=== PATIENT | male | born 1970 | race Caucasian/White ===

== ENCOUNTER 2016-08-06 07:01 | Observation (INO) | payer BC, OTHER ==
--- NOTE | 2016-07-24 12:01 | DIAGNOSTIC IMAGING REPORT ---
CHEST 2 VIEWS ROUTINE CLINICAL HISTORY: Preoperative chest COMPARISON STUDY: No previous studies for comparison. FINDINGS: The cardiac and mediastinal contours are normal. There is no focal pulmonary consolidation. There are no pleural effusions. There is no failure.[ IMPRESSION: No active disease in the chest. Electronically signed by: Kenji Chirinos M.D. 07/24/2016 12:00 PM Dictated Date/Time: 07/24/2016 11:59 AM
[2016-07-24 12:11] LABS: BASO % 0.6 %; BASO ABS # 0.04 K/uL (0-0.2); COMPLETE YES; EOS % 5.1 %; HEMATOCRIT 43.2 % (42-52); IG% 0.3 %; LYMPH % 36.2 %; LYMPH ABS # 2.63 K/uL (1.2-3.4); MEAN CELL VOLUME 87.6 fL (80-100); MEAN CORPUSCULAR HEMOGLOBIN 29.6 pg (25-34); MEAN CORPUSCULAR HGB CONC 33.8 g/dl (32-36); MEAN PLATELET VOLUME 10.2 fL (7.4-10.4); MONO % 5.2 %; NEUT % 52.6 %; PLATELET COUNT 260 K/uL (130-400); RED BLOOD COUNT 4.93 M/uL (4.7-6.1); WHITE BLOOD COUNT 7.27 K/uL (4.8-10.8)
[2016-07-24 12:19] LABS: PARTIAL THROMBOPLASTIN RATIO 1.1; PROTHROMBIN TIME (PATIENT) 10.9 SECONDS (9.0-12.0)
[2016-07-24 12:20] LABS: BUN/CREATININE RATIO 15.9 (10-20); CALCIUM 9.3 mg/dl (8.5-10.1); CREATININE 0.97 mg/dl (0.60-1.40); POTASSIUM 4.1 mmol/L (3.5-5.1)
--- NOTE | 2016-08-05 11:38 | HISTORY & PHYSICAL EXAMINATION ---
DATE OF ADMISSION: 08/06/2016 HISTORY OF PRESENT ILLNESS: He has neck pain, arm pain, trapezius pain, weakness long finger and index finger numbness, tingling. He has profound pain as well, cannot get comfortable. He has a workup for cervical disc herniation C6-C7. PAST MEDICAL HISTORY: Negative for kidney, liver disease, no carcinoma, acid reflux, positive, neck problems positive. No hypertension, COPD, diabetes. PAST SURGICAL HISTORY: ACL and meniscectomy of the knee. ALLERGIES: SULFUR. MEDICATIONS: Include Ventolin inhaler. SOCIAL HISTORY: Nonsmoker, non-ETOH user. REVIEW OF SYSTEMS: Denies any blurred vision, double vision, tinnitus. Does have neck pain. Denies chest pain, shortness of breath. Denies nausea, vomiting, urgency, frequency, dysuria. PHYSICAL EXAMINATION: VITAL SIGNS: Blood pressure 140/80, pulse of 80, respiratory rate 16, temperature 97.4. CARDIAC: Normal S1, S2, no S3. LUNGS: Clear to auscultation. No rales, rhonchi, or wheezing. ABDOMEN: Soft, nontender. MUSCULOSKELETAL: He has a positive Spurling maneuver. He has numbness and tingling. He has weakness of triceps, weakness of wrist extensors. No Lhermitte's sign. No upper motor neuron issues. Good vascularity. X-rays demonstrate spondylosis cervical spine, disc herniation cervical spine C6-7. DISPOSITION: Includes an ACDF with iliac crest bone graft at C6-7 cervical spine.
[~2016-08-06] VITALS: Ht 185.4 cm; Wt 104.5 kg
[2016-08-06] VITALS (14 sets, daily range): BP systolic 123–163; BP diastolic 78–102; PULSE 74–114; TEMP 36.5–37; O2SAT 95–98; Ht 185.4 cm; Wt 104.5 kg
[~2016-08-06 07:01] MED LIST: CEFAZOLIN 2000 MG/60 ML D5W 60 ML IV SCH; LACTATED RINGER'S 1000ML 1,000 ML IV SCH; NSS 1000ML IV SCH
[2016-08-06] MEDS ORDERED: MIDAZOLAM HCL 1 MG/ML 2ML VIAL ONE (07:57)
[2016-08-06] MEDS ORDERED: FENTANYL CITRATE INJ 50 MCG/1 ML 2 ML VIAL ONE ×2 (07:57→09:37)
--- NOTE | 2016-08-06 07:58 | History & Physical Bridge Note ---
H&P Re-Evaluation Bridge Note: I have examined the patient, reviewed the History & Physical and in the interval since the performance of the History & Physical I have noted the following changes of clinical significance: No changes noted
[2016-08-06] MEDS ORDERED: BACITRACIN 50000 UNIT VIAL ONE (07:59)
[2016-08-06] MEDS ORDERED: BUPIVACAINE/EPINEPHRINE 0.5% MPF 1:200,000 30 ML VIAL ONE (07:59)
[2016-08-06] MEDS ORDERED: THROMBIN FOR SOLN 20000 UNIT KIT ONE (07:59)
[2016-08-06] MEDS ORDERED: GELATIN SPONGE SZ 100 ONE (07:59)
[2016-08-06] MEDS ORDERED: EpHEDrine SULFATE INJ 50 MG/ML AMP IV PRN (08:00)
[2016-08-06] MEDS ORDERED: ATROPINE SULFATE 0.1 MG/ML 5ML SYR IV PRN (08:00)
[2016-08-06] MEDS ORDERED: ONDANSETRON INJ 2 MG/ML 2 ML VIAL IV PRN ×2 (08:00→10:15)
[2016-08-06] MEDS ORDERED: HYDROmorphone INJ 2 MG/ML SYR/VIAL ONE (08:38)
[2016-08-06] MEDS ORDERED: ROCURONIUM BROMIDE 10 MG/ML 5 ML VIAL ONE (08:48)
[2016-08-06] MEDS ORDERED: PROPOFOL IV EMULSION 10 MG/ML 20 ML VIAL IV ONE (08:48)
[2016-08-06] MEDS ORDERED: NEOSTIGMINE METHYLSULFATE 5 MG/5 ML SYR ONE (08:48)
[2016-08-06] MEDS ORDERED: ONDANSETRON INJ 2 MG/ML 2 ML VIAL ONE (08:48)
[2016-08-06] MEDS ORDERED: GLYCOPYRROLATE INJ 0.2 MG/ML VIAL ONE (08:48)
[2016-08-06] MEDS ORDERED: DEXAMETHASONE SOD INJ 4 MG/ML VIAL ONE (08:48)
[2016-08-06] MEDS ORDERED: ALBUTEROL HFA INHALER 8.5 GM INH ONE (08:48)
[2016-08-06] MEDS ORDERED: LIDOCAINE HCL 2% 2 ML VIAL (20MG/ML) ONE (08:48)
--- NOTE | 2016-08-06 10:03 | DIAGNOSTIC IMAGING REPORT ---
INTRAOPERATIVE FLUOROSCOPIC IMAGES OF THE CERVICAL SPINE CLINICAL HISTORY: ACDF COMPARISON STUDY: Cervical spine radiographs February 24, 2016. Fluoroscopy time: 6 seconds. FINDINGS: 2 fluoroscopic images were obtained. These images demonstrate a C6-C7 anterior discectomy and fusion. The inferior aspect of the fusion is partially obscured by overlying soft tissues. IMPRESSION: Fluoroscopic images demonstrating a C6-C7 anterior discectomy and fusion. Electronically signed by: Neal Palm M.D. 08/06/2016 10:01 AM Dictated Date/Time: 08/06/2016 10:00 AM
--- NOTE | 2016-08-06 10:03 | [facility] Post Operative Brief Note ---
Immediate Operative Summary Operative Date Aug 06, 2016. Pre-Operative Diagnosis Cervical Disc Herniation C6-C7 Post-Operative Diagnosis Cervical Disc Herniation C6-C7 Procedure(s) Performed C6-C7 Anterior Cervical Disectomy and Fusion with Iliac Crest Bone Graft Surgeon Dr. Lieberman Anthropology And Archeology Instructor Surgeon(s) SANDRA Barnes Estimated Blood Loss 20ml Specimens none per surgeon Complication(s) None Disposition Recovery Room / PACU
[2016-08-06] MEDS ORDERED: DEXAMETHASONE INJ 8 MG in SYRINGE 0 ML IV PRN (10:15)
[2016-08-06] MEDS ORDERED: RACEPINEPHRINE 2.25% NEBU SOLN 0.5 ML VIAL INH PRN (10:15)
[2016-08-06] MEDS ORDERED: NALOXONE HCL 0.4 MG/1 ML VIAL/CARP IV PRN (10:15)
[2016-08-06] MEDS ORDERED: MAGNESIUM HYDROXIDE SUSP 30 ML UDC PO PRN (10:15)
[2016-08-06] MEDS: FENTANYL CITRATE INJ 50 MCG/1 ML 2 ML VIAL IV PRN ×5 (10:15→11:35)
[2016-08-06] MEDS ORDERED: LORAZEPAM INJ 0.5 MG in SYRINGE 0.75 ML IV PRN (10:15)
[2016-08-06] MEDS ORDERED: ACETAMINOPHEN IV 100 ML IV PRN (10:15)
[2016-08-06] MEDS ORDERED: RANITIDINE HCL 150 MG TAB PO PRN (10:15)
[2016-08-06] MEDS ORDERED: HYDROmorphone INJ 0.5 MG/0.5 ML SYR IV PRN (10:15)
[2016-08-06] MEDS ORDERED: HYDROmorphone INJ 1 MG/ML SYR IV PRN (10:30)
[2016-08-06] MEDS: MoRPHine SULFATE 10 MG/ML CARP/VIAL IV PRN ×3 (11:25→11:35)
--- NOTE | 2016-08-06 11:27 | OPERATIVE REPORT ---
DATE OF OPERATION: 08/06/2016 PREOPERATIVE DIAGNOSES: Spinal cord compression and large disk herniation C6-C7 cervical spine. POSTOPERATIVE DIAGNOSES: Same. PROCEDURES: 1. Anterior cervical discectomy and arthrodesis, C6-C7. 2. Left iliac crest structural autograft. COMPLICATIONS: Zero. BLOOD LOSS: Less than 20 mL. SURGEON: Mitch Lieberman DO CLIP COATER: Colton Yanes PA-C ANESTHESIA: General. DESCRIPTION OF PROCEDURE: The patient was taken to the operating room, general intubated and anesthetic provided to the patient, kept supine, scrubbed and prepped cervical spine and iliac crest draped sterile. We made a transverse skin incision with classic Aguilar Bolton approach to the cervical spine. We dissected the soft tissue. We came down and marked the C5-C6 interspace. Because of his size, we could not quite see down at C6-C7, but we were happy with the placement. We then used the 15 scalpel blade and did a formal diskectomy with pituitaries. I was back on the spinal cord. It was able to get out the free fragment that I thought was the source of his pain. I was pleased with the decompression and visibility. Then, we made a separate skin incision, fascial incision and obtained a structural autograft. This measured about 17 mm in length, 8-9 mm in height, and approximately 14 mm left to right. This was placed into the diskectomy site at C6-C7. The fit was anatomic. We then irrigated and closed the iliac crest with #1 Vicryl, 2-0 and 3-0 nylon on the skin. The cervical spine was closed with 2-0 Vicryl over a [place] drain, 4-0 Monocryl as well. Sterile dressings applied. Cervical collar applied. The patient extubated safely, returned to PACU safely, no apparent complications. Sponge and needle count correct at the close. I attest to the content of the Intraoperative Record and any orders documented therein. Any exceptio ns are noted below.
--- NOTE | 2016-08-06 11:42 | Anesthesiology Progress Note ---
Anesthesia Post Op Note Date & Time Aug 06, 2016 at 11:41 Vital Signs Pain Intensity: 5 Vital Signs Past 12 Hours Date Time Temp Pulse Resp B/P Pulse Ox O2 Delivery O2 Flow Rate FiO2 08/06/16 11:30 36.5 96 12 140/88 95 Nasal Cannula 3 08/06/16 11:20 36.5 96 12 140/89 96 Nasal Cannula 3 08/06/16 11:11 36.5 89 12 159/89 97 Nasal Cannula 3 08/06/16 11:05 91 12 144/90 97 Nasal Cannula 3 08/06/16 10:55 85 12 135/101 6 Nasal Cannula 3 08/06/16 10:45 80 12 146/89 97 Nasal Cannula 3 08/06/16 10:35 96 12 154/92 100 Nasal Cannula 3 08/06/16 10:25 89 12 154/99 100 Mask 10 08/06/16 10:15 97 12 159/95 100 Mask 10 08/06/16 10:09 36.0 85 12 156/90 100 Mask 10 08/06/16 07:32 36.6 97 22 144/102 96 Room Air Notes Mental Status: alert / awake / arousable, participated in evaluation Pt Amnestic to Procedure: Yes Nausea / Vomiting: adequately controlled Pain: adequately controlled Airway Patency, RR, SpO2: stable & adequate BP & HR: stable & adequate Hydration State: stable & adequate Anesthetic Complications: no major complications apparent
[2016-08-06] MEDS: SODIUM CHLORIDE 0.9% 1000ML 1,000 ML IV SCH ×2 (12:50→22:02)
[2016-08-06] MEDS: OXYCODONE/ACETAMINOPHEN 5-325 TAB PO PRN ×2 (13:25→18:47)
[2016-08-06] MEDS: DEXAMETHASONE INJ 6 MG in SYRINGE 0 ML IV SCH (16:15)
[2016-08-06] MEDS: CEFAZOLIN IV 1,000 MG in DEXTROSE 5% 50ML 50 ML IV SCH (16:15)
[2016-08-06] MEDS: DOCUSATE SODIUM 100 MG CAP PO SCH (20:50)
[2016-08-07] VITALS (16 sets, daily range): BP systolic 112–165; BP diastolic 72–95; PULSE 71–95; TEMP 36.4–36.8; O2SAT 93–98
[2016-08-07] MEDS: CEFAZOLIN IV 1,000 MG in DEXTROSE 5% 50ML 50 ML IV SCH ×2 (00:09→07:47)
[2016-08-07] MEDS: DEXAMETHASONE INJ 6 MG in SYRINGE 0 ML IV SCH ×2 (00:09→07:47)
[2016-08-07] MEDS: HYDROmorphone INJ 1 MG/ML SYR IV PRN ×2 (00:25→04:14)
[2016-08-07] MEDS: OXYCODONE/ACETAMINOPHEN 5-325 TAB PO PRN ×3 (02:16→12:25)
--- NOTE | 2016-08-07 07:39 | Discharge Instructions ---
Discharge Instructions Date of Service Aug 07, 2016. Admission Reason for Admission: Cervical Disc Herniation C6-C7 Discharge Discharge Diagnosis / Problem: cord compression Discharge Goals Goal(s): Improve function Activity Recommendations Activity Limitations: as noted below Lifting Limitations: gradually increase as tolerated Exercise/Sports Limitations: until after follow-up appointment May Resume Sexual Activity: after follow-up appointment Shower/Bathe: keep incision dry . Current Hospital Diet Patient's current hospital diet: Full Liquid Diet Discharge Diet Recommended Diet: Regular Diet Procedures Procedures Performed: C6-C7 Anterior Cervical Disectomy and Fusion with Iliac Crest Bone Graft Pending Studies Studies pending at discharge: no Medical Emergencies . Who to Call and When: Medical Emergencies: If at any time you feel your situation is an emergency, please call 911 immediately. . Non-Emergent Contact Non-Emergency issues call your: Surgeon Call Non-Emergent contact if: you have any medication questions . "Provider Documentation" section prepared by Mitch Lieberman. VTE Core Measure Inpt VTE Proph given/why not?: Treatment not indicated
--- NOTE | 2016-08-07 08:21 | Anesthesiology Progress Note ---
Anesthesia Post Op Note Date & Time Aug 07, 2016 at 08:20 Vital Signs Pain Intensity: 5.0 Vital Signs Past 12 Hours Date Time Temp Pulse Resp B/P Pulse Ox O2 Delivery O2 Flow Rate FiO2 08/07/16 08:10 Room Air 08/07/16 08:01 79 16 96 Room Air 08/07/16 07:42 36.5 87 16 117/75 94 Room Air 08/07/16 07:05 16 Room Air 08/07/16 06:00 36.4 71 14 112/72 97 Room Air 08/07/16 04:00 36.5 73 122/75 97 Nasal Cannula 2.0 Humidified Oxygen 08/07/16 03:22 88 14 98 Nasal Cannula 2.0 08/07/16 02:00 36.8 75 16 128/74 96 Nasal Cannula 2.0 Humidified Oxygen 08/07/16 00:00 Nasal Cannula 2.0 Humidified Oxygen 08/07/16 00:00 36.8 93 18 113/72 97 Nasal Cannula 2.0 Humidified Oxygen 08/06/16 23:28 96 14 96 Nasal Cannula 3.0 08/06/16 22:00 37.0 95 18 123/78 97 Nasal Cannula 3.0 Humidified Oxygen 08/06/16 21:00 36.8 104 18 135/84 95 Nasal Cannula 3.0 Humidified Oxygen Notes Mental Status: alert / awake / arousable, participated in evaluation Pt Amnestic to Procedure: Yes Nausea / Vomiting: adequately controlled Pain: adequately controlled Airway Patency, RR, SpO2: stable & adequate BP & HR: stable & adequate Hydration State: stable & adequate Anesthetic Complications: no major complications apparent
--- NOTE | 2016-08-07 08:41 | DISCHARGE SUMMARY ---
DATE OF DISCHARGE: 08/07/16 SUBJECTIVE: Minimal complaints of pain. Alert, oriented, improved. OBJECTIVE: Vital signs stable, wound is clean, dry. No neurological deficits. ASSESSMENT: Status post anterior cervical discectomy and fusion cervical spine. DISPOSITION: Will discharge him home today in improved stable condition. Instructions, precautions, education. He has prescriptions at home. He has a cervical collar for support. He was given instructions in the office and in the hospital. Followup examination in 10 days.
[2016-08-07] MEDS: DOCUSATE SODIUM 100 MG CAP PO SCH (08:47)
[2016-08-07] MEDS ORDERED: MULTIVITAMIN TAB PO SCH (09:00)
[2016-08-07] MEDS: SODIUM CHLORIDE 0.9% 1000ML 1,000 ML IV SCH (09:24)
[2016-08-08] MEDS ORDERED: BISACODYL 10 MG SUPP PR PRN (06:00)
[2016-08-08] MEDS ORDERED: POLYETHYLENE (MIRALAX) 17 GM PACK PO SCH (09:00)
== END 2016-08-07 16:45 | disposition home or self-care (01) ==
LOC: ENRESERVDT → ENRESERVTM → C.ACU 07:01 → C.3E 07:18
PROVIDERS: ADMIT Orthopaedic Surgery Orthopaedic Surgery of the Spine; ATTEND Orthopaedic Surgery Orthopaedic Surgery of the Spine
DX: M50.20 Other cervical disc displacement, unspecified cervical region (principal); G95.20 Unspecified cord compression

== ENCOUNTER 2017-04-06 14:38 | Emergency (ER) | payer OTHER ==
[2017-04-06] MEDS ORDERED: SODIUM CHLORIDE 0.9% 1000ML 1,000 ML IV STA ×2 (14:51→15:47)
[2017-04-06 15:03] VITALS: O2SAT 94
--- NOTE | 2017-04-06 15:03 | EMERGENCY ROOM VISIT NOTE ---
History Report prepared by Natalia: Sydnie Fernandez Under the Supervision of: Dr. Moreno Head M.D. First contact with patient: 14:42 Chief Complaint: TACHYCARDIA Stated Complaint: TACHYCARDIA Nursing Triage Summary: Pt was at work, sitting, and had a sudden onset of tachycardia, diaphoresis, lightheaded, achy. Had a similar episode 2 weeks ago. Pt had SOB today with this episode. History of Present Illness The patient is a 47 year old male who presents to the Emergency Room with complaints of intermittent palpitations since 4.5 hours PULLER THROUGH. He notes beginning to sweat earlier this morning and his heart suddenly began to race and he became short of breath and could not walk upstairs. He went to [facility] and notes his HR was 160. He was given Ativan IV. He currently does not have any palpitations. He has had a similar episode two weeks ago for which he has not yet seen his PCP. He reports having headaches in general, though not attributed to his palpitations. He has a history of neck surgery for a cervical spinal fusion in August 2016. He notes regularly exercise and denies taking any supplements besides a multivitamin. He notes recently cutting back on soda and has increased his water intake over the last two weeks. He denies any fevers, chills, coughs, congestion, abdominal pain, or dizziness. Source of History: patient Onset: 4.5 hours PULLER THROUGH Quality: other (palpitations) Timing: intermittent Associated Symptoms: + headache, + diaphoresis, + SOB, No fevers, No chills , No cough, No abdominal pain Note: He denies congestion and dizziness. He currently does not have palpitations. Review of Systems See HPI for pertinent positives and negatives. A total of ten systems were reviewed and were otherwise negative. Past Medical & Surgical Medical Problems: (1) Cervical disc disease Surgical Problems: (1) S/P cervical spinal fusion Family History No pertinent family history obtained. Social History Smoking Status: Never Smoker Alcohol Use: occasionally Marital Status: Housing Status: lives with significant other Occupation Status: employed Current/Historical Medications Scheduled Multivitamin (Multivitamin), 1 TAB PO QAM Scheduled PRN Albuterol Hfa (Ventolin Hfa), 2-4 PUFFS INH Q6H PRN for Shortness of Breath Ranitidine HCl (Ranitidine 75), 150 MG PO DAILY PRN for Indigestion Allergies Coded Allergies: Shellfish (Verified Allergy, Intermediate, throat edema, 08/06/16) Sulfa Antibiotics (Verified Allergy, Mild, HIVES, 07/21/16) Uncoded Allergies: DOGS CATS (Allergy, Unknown, 06/15/02) Physical Exam Vital Signs Date Time Temp Pulse Resp B/P (MAP) Pulse Ox O2 Delivery O2 Flow Rate FiO2 04/06/17 18:30 88 16 135/93 94 04/06/17 17:31 87 17 143/98 95 Room Air 04/06/17 17:00 86 13 119/61 94 Room Air 04/06/17 16:30 91 13 116/85 94 04/06/17 16:01 122/94 04/06/17 16:00 101 18 94 04/06/17 15:30 104 13 113/81 96 Room Air 04/06/17 15:15 115 20 124/81 94 Room Air 04/06/17 15:14 111 04/06/17 15:03 94 Room Air 04/06/17 14:41 94 Room Air 04/06/17 14:41 123 25 127/75 94 Room Air Physical Exam GENERAL: Awake, alert, anxious-appearing, in no distress HENT: Normocephalic, atraumatic. Oropharynx dry mm otherwise unremarkable. EYES: Normal conjunctiva. Sclera non-icteric. NECK: Supple. No nuchal rigidity. FROM. No JVD. RESPIRATORY: Clear to auscultation. CARDIAC: Sinus tachycardia. Extremities warm and well perfused. Pulses equal. ABDOMEN: Soft, non-distended. No tenderness to palpation. No rebound or guarding. No masses. RECTAL: Deferred. MUSCULOSKELETAL: Chest examination reveals no tenderness. The back is symmetrical on inspection without obvious abnormality. There is no CVA tenderness to palpation. No joint edema. LOWER EXTREMITIES: Calves are equal size bilaterally and non-tender. No edema. No discoloration. NEURO: Normal sensorium. No sensory or motor deficits noted. SKIN: No rash or jaundice noted. Medical Decision & Procedures ER Provider Diagnostic Interpretation: Radiology results as stated below per my review and radiologist interpretation: SINGLE VIEW CHEST CLINICAL HISTORY: Atypical chest pain. FINDINGS: An AP, portable, upright chest radiograph is compared to study dated 07/24/2016. The examination is degraded by portable technique and patient rotation. The cardiomediastinal silhouette is unremarkable. There are low lung volumes. No airspace consolidation or large pleural effusion is identified. No pneumothorax is seen. The bony thorax is grossly intact. Fusion hardware is seen in the lower cervical region. IMPRESSION: No acute cardiopulmonary abnormality. Electronically signed by: John Downs M.D. 04/06/2017 3:11 PM Dictated Date/Time: 04/06/2017 3:11 PM Laboratory Results 04/06/17 15:15 Red Blood Count 4.83, Mean Corpuscular Volume 87.8, Mean Corpuscular Hemoglobin 30.6, Mean Corpuscular Hemoglobin Concent 34.9, Mean Platelet Volume 10.2, Neutrophils (%) (Auto) 65.2, Lymphocytes (%) (Auto) 23.7, Monocytes (%) (Auto) 8.1, Eosinophils (%) (Auto) 2.4, Basophils (%) (Auto) 0.3, Neutrophils # (Auto) 6.59, Lymphocytes # (Auto) 2.40, Monocytes # (Auto) 0.82, Eosinophils # (Auto) 0.24, Basophils # (Auto) 0.03 04/06/17 15:15 Test 04/06/17 15:15 White Blood Count 10.11 K/uL (4.8-10.8) Red Blood Count 4.83 M/uL (4.7-6.1) Hemoglobin 14.8 g/dL (14.0-18.0) Hematocrit 42.4 % (42-52) Mean Corpuscular Volume 87.8 fL (80-100) Mean Corpuscular Hemoglobin 30.6 pg (25-34) Mean Corpuscular Hemoglobin Concent 34.9 g/dl (32-36) Platelet Count 263 K/uL (130-400) Mean Platelet Volume 10.2 fL (7.4-10.4) Neutrophils (%) (Auto) 65.2 % Lymphocytes (%) (Auto) 23.7 % Monocytes (%) (Auto) 8.1 % Eosinophils (%) (Auto) 2.4 % Basophils (%) (Auto) 0.3 % Neutrophils # (Auto) 6.59 K/uL (1.4-6.5) Lymphocytes # (Auto) 2.40 K/uL (1.2-3.4) Monocytes # (Auto) 0.82 K/uL (0.11-0.59) Eosinophils # (Auto) 0.24 K/uL (0-0.5) Basophils # (Auto) 0.03 K/uL (0-0.2) RDW Standard Deviation 44.4 fL (36.4-46.3) RDW Coefficient of Variation 13.8 % (11.5-14.5) Immature Granulocyte % (Auto) 0.3 % Immature Granulocyte # (Auto) 0.03 K/uL (0.00-0.02) Anion Gap 8.0 mmol/L (3-11) Estimated GFR () 65.9 Estimated GFR (Non- 56.9 BUN/Creatinine Ratio 14.9 (10-20) Calcium Level 9.1 mg/dl (8.5-10.1) Magnesium Level 2.6 mg/dl (1.8-2.4) Total Bilirubin 0.3 mg/dl (0.2-1) Direct Bilirubin < 0.1 mg/dl (0-0.2) Aspartate Amino Transf (AST/SGOT) 17 U/L (15-37) Alanine Aminotransferase (ALT/SGPT) 29 U/L (12-78) Alkaline Phosphatase 63 U/L (45-117) Troponin I < 0.015 ng/ml (0-0.045) Total Protein 7.7 gm/dl (6.4-8.2) Albumin 3.8 gm/dl (3.4-5.0) Lipase 144 U/L (73-393) Thyroid Stimulating Hormone (TSH) 2.860 uIu/ml (0.300-4.500) Laboratory results reviewed by me Medications Administered Medications (Trade) Dose Ordered Sig/[place] Route Start Time Stop Time Status Last Admin Dose Admin Sodium Chloride 1,000 ml @ 999 mls/hr Q1H1M STAT IV 04/06/17 14:51 04/06/17 15:51 DC 04/06/17 15:15 999 MLS/HR Sodium Chloride 1,000 ml @ 999 mls/hr Q1H1M STAT IV 04/06/17 15:47 04/06/17 16:47 DC 04/06/17 15:55 999 MLS/HR ECG Indication: palpitations Rate (beats per minute): 118 Rhythm: sinus tachycardia Findings: no acute ischemic change, other (normal axis) ED Course 1442: The patient was evaluated in room B4B. A complete history and physical exam was performed. 1825: I reassessed the patient at this time. He is feeling better and resting comfortably. I discussed the results and treatment plan with the patient. I answered all pertaining questions that he had. He expressed understanding and verbalized agreement. The patient will be discharged home. Medical Decision I reviewed the patient's past medical history, medications, and the nursing notes as described above. Differential diagnoses: dehydration, electrolyte abnormality, arrhythmia, ACS, PNA, bronchitis. The patient is a 47-year-old gentleman who presents emergency Department with palpitations and apparent episode of SVT to 160 after being seen at urgent care per history of present illness. On arrival the patient is mildly anxious but otherwise in no acute distress, afebrile, his heart rate to 120s, no signs otherwise stable. EKG on arrival shows sinus tach to 120s no signs of acute ischemia. While report of heart rate to 160s at urgent care EKG done, after Ativan was 120s similar to here. On exam the patient appears clinically dry. Labs notable for mild history of present illness with creatinine 1.4 compared to patient's prior which was within normal limits. Patient's heart rate improving with IV fluids alone, out to 80s with 2 L of NS. Labs otherwise unremarkable. The patient's clinical dry appearance and new JHONATAN possible that this may have provoked the patient's prior as well as this episode of SVT. Plan will be to follow up with the patient's primary care doctor for his renal function and case management is assisting to arrange for cardiology follow-up. Findings and plan for follow-up reviewed with patient. Patient agreeable and d/c 'd per discharge instructions. Medication Reconcilliation Current Medication List: was personally reviewed by me Blood Pressure Screening Patient's blood pressure: Normal blood pressure Impression Primary Impression: Paroxysmal SVT (supraventricular tachycardia) Additional Impression: Acute kidney injury Scribe Attestation The scribe's documentation has been prepared under my direction and personally reviewed by me in its entirety. I confirm that the note above accurately reflects all work, treatment, procedures, and medical decision making performed by me. Departure Information Dispostion Home / Self-Care Forms HOME CARE DOCUMENTATION FORM, IMPORTANT VISIT INFORMATION, WORK / SCHOOL INSTRUCTIONS Patient Instructions Acute Kidney Injury Dc, ED Tachycardia Pat PSVT, My [facility] Additional Instructions Please follow up with your primary care physician in the next 1-3 days for re- evaluation and to repeat your kidney function tests. You should also follow up with cardiology within the next week. Our case management team will contact you to help facilitate this follow-up. You likely had an episode of supraventricular tachycardia (SVT), which my have been provoked by your mild dehydration and renal (kidney) impairment. Your heart improved to normal with IV fluids alone. Otherwise, your exam, EKG, chest xray, and lab results did not show signs of an emergent condition at this time. Return to the emergency department for worsening symptoms as described in the accompanying instructions. Problem Qualifiers
--- NOTE | 2017-04-06 15:12 | DIAGNOSTIC IMAGING REPORT ---
SINGLE VIEW CHEST CLINICAL HISTORY: Atypical chest pain. FINDINGS: An AP, portable, upright chest radiograph is compared to study dated 07/24/2016. The examination is degraded by portable technique and patient rotation. The cardiomediastinal silhouette is unremarkable. There are low lung volumes. No airspace consolidation or large pleural effusion is identified. No pneumothorax is seen. The bony thorax is grossly intact. Fusion hardware is seen in the lower cervical region. IMPRESSION: No acute cardiopulmonary abnormality. Electronically signed by: John Downs M.D. 04/06/2017 3:11 PM Dictated Date/Time: 04/06/2017 3:11 PM
[2017-04-06 15:30] LABS: BASO % 0.3 %; BASO ABS # 0.03 K/uL (0-0.2); COMPLETE YES; EOS % 2.4 %; HEMATOCRIT 42.4 % (42-52); IG% 0.3 %; LYMPH % 23.7 %; MEAN CELL VOLUME 87.8 fL (80-100); MEAN CORPUSCULAR HEMOGLOBIN 30.6 pg (25-34); MEAN CORPUSCULAR HGB CONC 34.9 g/dl (32-36); MEAN PLATELET VOLUME 10.2 fL (7.4-10.4); MONO % 8.1 %; NEUT % 65.2 %; PLATELET COUNT 263 K/uL (130-400); RED BLOOD COUNT 4.83 M/uL (4.7-6.1); WHITE BLOOD COUNT 10.11 K/uL (4.8-10.8)
[2017-04-06] MEDS ORDERED: MULT-506 PO (15:38)
[2017-04-06] MEDS ORDERED: RANI1TAB75 PO (15:38)
[2017-04-06] MEDS ORDERED: VNTHFA/IN INH (15:38)
[2017-04-06 15:54] LABS: ALT/SGPT 29 U/L (12-78); BLOOD UREA NITROGEN 22 mg/dl (7-18); BUN/CREATININE RATIO 14.9 (10-20); CALCIUM 9.1 mg/dl (8.5-10.1); CARBON DIOXIDE 25 mmol/L (21-32); CHLORIDE 107 mmol/L (98-107); CREATININE 1.46 mg/dl (0.60-1.40); GLUCOSE 85 mg/dl (70-99); MAGNESIUM 2.6 mg/dl (1.8-2.4); POTASSIUM 4.1 mmol/L (3.5-5.1); SODIUM 140 mmol/L (136-145)
[2017-04-06 16:05] LABS: ALKALINE PHOSPHATASE 63 U/L (45-117); AST/SGOT 17 U/L (15-37)
[2017-04-06 18:30] VITALS: BP 135/93; PULSE 88; O2SAT 94
== END 2017-04-06 18:29 | disposition home or self-care (01) ==
LOC: EDBD 14:38 → C.EDB 14:41
DX: I47.1 Supraventricular tachycardia (principal); N17.9 Acute kidney failure, unspecified; M50.90 Cervical disc disorder, unspecified, unspecified cervical region

== ENCOUNTER → 2017-06-30 | Outpatient (CLI) | payer OTHER ==
[~2017-06-30] MED LIST changes: -CEFAZOLIN 2000 MG/60 ML D5W 60 ML IV SCH; -LACTATED RINGER'S 1000ML 1,000 ML IV SCH; +MULT-506 PO; -NSS 1000ML IV SCH; +RANI1TAB75 PO; +VNTHFA/IN INH
== END | disposition home or self-care (01) ==
LOC: C.LABSPEC 11:08
PROVIDERS: ATTEND Nurse Practitioner Family
DX: J02.9 Acute pharyngitis, unspecified (principal)

== ENCOUNTER → 2017-12-07 | Outpatient (CLI) | payer OTHER | END | disposition home or self-care (01) | LOC: C.LAB1850 12:48 | PROVIDERS: ATTEND Nurse Practitioner Adult Health | DX: R39.9 Unspecified symptoms and signs involving the genitourinary system (principal) ==